=== PATIENT | female | born 1970 | race Caucasian/White ===

== ENCOUNTER 2016-02-22 15:59 | Emergency (ER) ==
[2016-02-22 16:15] VITALS: BP 156/90; TEMP 99.4; BMI 36.8
[2016-02-22] MEDS ORDERED: PHENERGAN 25 MG/ML VIAL IM STA (16:26)
[2016-02-22] MEDS ORDERED: DILAUDID 2 MG/ML SYRINGE IM STA (16:26)
--- NOTE | 2016-02-22 16:29 | ED.PDOC ---
General ED Provider: Dr. JAEMEL LANCE-ER Chief Complaint: Headache Stated Complaint: rudy got a migraine also my throat hurts Time Seen by Physician: 16:15 Mode of Arrival: Walk-In Information Source: Patient Exam Limitations: No limitations Primary Care Provider: SAE GOMEZ Nursing and Triage Documentation Reviewed and Agree: Yes EENT Complaint Exam - Throat Complaint/Exam Onset/Duration: 24hrs Symptoms Are: Still present Timimg: Constant Initial Severity: Mild Current Severity: Mild Aggravating: Reports: Eating Alleviating: Reports: Antipyretics Associated Signs and Symptoms: Reports: Nasal congestion. Denies: Fever, Dysphagia, Drooling, Foreign body sensation, Chills, Cough, Wheezing, Hoarseness , Sinus discomfort, Difficulty breathing, Lethargy, Irritability, Decreased activity, Vomiting, Diarrhea, Decreased hearing, Ear drainage Uvula Midline: Yes Faiza-tonsillar Fluctuence: No Exanthem: Present: Pharynx Stridor Present: No Sinus Tenderness Present: No Tonsillar Hypertrophy Present: Yes Tonsillar Exudate Present: Yes Faiza-tonsillar Swelling Present: No Adenopathy Present: Yes Splenomegaly Present: No Differential Diagnoses: Pharyngitis Review of Systems - Review Of Systems Constitutional: Reports: No symptoms Eyes: Reports: No symptoms Ears, Nose, Mouth, Throat: Reports: Throat pain, Throat swelling Respiratory: Reports: No symptoms Cardiac: Reports: No symptoms GI: Reports: No symptoms : Reports: No symptoms Musculoskeletal: Reports: No symptoms Skin: Reports: No symptoms Neurological: Reports: No symptoms Endocrine: Reports: No symptoms Hematologic/Lymphatic: Reports: No symptoms All Other Systems: Reviewed and Negative Past Medical History - Past Medical History Previously Healthy: No Endocrine: Reports: None Cardiovascular: Reports: Hypertension Respiratory: Reports: None Hematological: Reports: None Gastrointestinal: Reports: None Genitourinary: Reports: None Neuro/Psych: Reports: Anxiety, Depression, PTSD, Other (NOTE MEDICATIONS) Musculoskeletal: Reports: Back Pain Cancer: Reports: None Last Menstrual Period: hysterectomy Other Pertinent Past Medical History: HTN DEPR ANX ARTH BACK CCE HYST - Surgical History General Surgical History: Reports: Hysterectomy, Cholecystectomy, Unknown - Family History Family History: Reports: Unknown - Social History Smoking Status: Current every day smoker, Heavy tobacco smoker Hx Substance Use: No Alcohol Screening: None Lives: With family Physical Exam - Physical Exam Appearance: Well-appearing, No pain distress, Well-nourished Eyes: KOBI, EOMI, Conjunctiva clear ENT: Rhinorrhea, Erythema Neck: Supple Respiratory: Airway patent Cardiovascular: RRR GI/: Soft, Nontender, No masses, Bowel sounds normal, No Organomegaly Musculoskeletal: Normal strength, ROM intact, No edema, No calf tenderness Skin: Warm, Dry, Normal color Neurological: Sensation intact Psychiatric: Affect appropriate Re-Evaluation - Re-Evaluation Time of Re-Evaluation: 16:45 Status: Improved Vital Signs Stable: Yes Pain Level: 0 Appearance: NAD Lungs: Clear Skin: Warm and Dry Neuro: Alert and Oriented X3 CV: RRR Critical Care Note - Critical Care Note Total Time (mins): 0 Course - Course Orders, Labs, Meds: Orders Category Date Time Status STREP SCREEN Stat LAB 02/22/16 16:26 Uncollected Hydromorphone HCl/Pf [Dilaudid 2 mg/ml Syringe] MEDS 02/22/16 16:26 Stat 2 mg IM ONCE STA Promethazine HCl [Phenergan 25 mg/ml Vial] MEDS 02/22/16 16:26 Stat 25 mg IM ONCE STA Medications Generic Name Dose Route Start Last Admin Trade Name Freq PRN Reason Stop Dose Admin Hydromorphone HCl 2 mg 02/22/16 16:26 Dilaudid 2 Mg/Ml Syringe IM 02/22/16 16:27 ONCE STA Promethazine HCl 25 mg 02/22/16 16:26 Phenergan 25 Mg/Ml Vial IM 02/22/16 16:27 ONCE STA Vital Signs: Temp Pulse Resp BP Pulse Ox 02/22/16 15:59 99.4 F 93 H 20 156/90 H 96 Departure - Departure Time of Disposition: 16:29 Disposition: HOME SELF-CARE Discharge Problem: Migraine Qualifiers: Migraine type: unspecified Status migrainosus presence: without status migrainosus Intractability: not intractable Qualifier Code: (G43.909) Migraine, unspecified, not intractable, without status migrainosus Pharyngitis Qualifiers: Pharyngitis/tonsillitis etiology: unspecified etiology Qualifier Code: (J02.9) Acute pharyngitis, unspecified Instructions: Pharyngitis (ED) Condition: Good Pt referred to PMD for follow-up: Yes Additional Instructions: amoxil 500mg tid x 10 days--sips clear liquids--salt water gargles--tylenol for pain Allergies/Adverse Reactions: Allergies ondansetron HCl [From Zofran (as hydrochloride)] Adverse Reaction (Verified 06/04 16:07) Home Medications: Ambulatory Orders Escitalopram Oxalate [Lexapro] 40 mg PO DAILY 10/11/13 Oxycodone-Acetaminophe 7.5-325 [Percocet 7.5-325] 1 tab PO TID PRN 12/31/14 Gabapentin [Neurontin] 600 mg PO BID #30 09/08/15 Haloperidol 5 mg PO TID PRN #21 09/08/15 Alprazolam [Xanax] 1 mg PO TID #90 09/15/15 Benztropine Mesylate 2 mg PO BEDTIME PRN #30 09/15/15 Zolpidem Tartrate [Ambien] 10 mg PO BEDTIME #30 09/15/15 Oxycodone HCl/Acetaminophen [Percocet 7.5-325 Mg Tablet] 1 each PO TID PRN 10/17 Alprazolam [Xanax] 1 mg PO TID #90 12/08/15 Benztropine Mesylate 2 mg PO BEDTIME #30 12/08/15 Escitalopram Oxalate [Lexapro] 20 mg PO BEDTIME #30 12/08/15 Gabapentin [Neurontin] 600 mg PO BID #120 12/08/15 Haloperidol 5 mg PO TID 12/08/15 Zolpidem Tartrate [Ambien] 10 mg PO BEDTIME #30 12/08/15 Topiramate [Topamax] 25 mg PO BEDTIME 02/22/16 Disposition Discussed With: Patient
== END 2016-02-22 16:55 | disposition home or self-care (01) ==
LOC: ED 15:59
DX: G43.909 Migraine, unspecified, not intractable, without status migrainosus (principal); J02.9 Acute pharyngitis, unspecified; I10 Essential (primary) hypertension; F17.210 Nicotine dependence, cigarettes, uncomplicated; Z79.899 Other long term (current) drug therapy
CPT/HCPCS: 87651; 87880; 96372; 99283

== ENCOUNTER 2016-09-09 09:55 | Emergency (ER) ==
[2016-09-09 10:10] VITALS: BP 137/94; TEMP 99.1; BMI 36.7
--- NOTE | 2016-09-09 10:13 | ED.PDOC ---
General ED Provider: Dr. SULEMAN NOVAK JR Chief Complaint: Urinary Problem Stated Complaint: urinary having trouble for one week and abdominal for one week [End]worse today 99.1 118 18 94 137/94 9/10 took half percocet, trouble with urination one week abdominal pain for one month[ inability to urinate for one week voiding small amounts[ End ] Time Seen by Physician: 10:12 Mode of Arrival: Wheelchair Information Source: Patient Exam Limitations: No limitations Primary Care Provider: SAE GOMEZ Nursing and Triage Documentation Reviewed and Agree: No Review of Systems - Review Of Systems Constitutional: Reports: Malaise Eyes: Reports: Drainage Ears, Nose, Mouth, Throat: Reports: No symptoms Respiratory: Reports: No symptoms Cardiac: Reports: No symptoms GI: Reports: Abdomen distended, Abdominal pain, Nausea : Reports: Burning, Dysuria, Frequency, Urgency Musculoskeletal: Reports: No symptoms Skin: Reports: No symptoms Neurological: Reports: Anxiety Endocrine: Reports: No symptoms Hematologic/Lymphatic: Reports: No symptoms All Other Systems: Other Past Medical History - Past Medical History Previously Healthy: No Endocrine: Reports: None Cardiovascular: Reports: Hypertension Respiratory: Reports: COPD Hematological: Reports: None Gastrointestinal: Reports: None Genitourinary: Reports: None Neuro/Psych: Reports: Migraine, Anxiety, Depression, Schizophrenia, PTSD, Other (NOTE MEDICATIONS) Musculoskeletal: Reports: Arthritis, Back Pain Cancer: Reports: None Last Menstrual Period: na - Surgical History General Surgical History: Reports: Hysterectomy (PARTIAL HYSTERECTOMY), Cholecystectomy - Family History Family History: Reports: Unknown - Social History Smoking Status: Current every day smoker, Heavy tobacco smoker Hx Substance Use: No Alcohol Screening: None - Immunizations Tetanus Shot up to Date: No Physical Exam - Physical Exam Appearance: Ill-appearing, Obese Ill-appearing: Moderate Pain Distress: Moderate Eyes: KBOI (tearful), EOMI, Conjunctiva clear Neck: Supple Respiratory: Airway patent GI/: Soft, No masses, Tender, Bowel sounds hypoactive Musculoskeletal: Normal strength, ROM intact, No edema, No calf tenderness Skin: Warm, Dry, Normal color Neurological: Sensation intact, Motor intact, Reflexes intact, Cranial nerves intact, Alert, Oriented Psychiatric: Affect appropriate, Anxious Critical Care Note - Critical Care Note Total Time (mins): 0 Course - Course Hematology/Chemistry: 09/09/16 10:15 09/09/16 10:15 Orders, Labs, Meds: Lab Review 09/09/16 10:15 WBC 9.54 RBC 4.43 Hgb 12.9 Hct 38.6 MCV 87.1 MCH 29.1 MCHC 33.4 RDW Coeff of Marquez 13.7 Plt Count 273 Immature Gran % (Auto) 0.3 Neut % (Auto) 53.5 Lymph % (Auto) 37.2 [place] % (Auto) 5.7 Eos % (Auto) 2.7 Baso % (Auto) 0.6 Immature Gran # (Auto) 0.0 Neut # 5.1 Lymph # 3.6 H [place] # 0.5 Eos # 0.3 Baso # 0.1 Sodium 139 Potassium 4.2 Chloride 105 Carbon Dioxide 22 Anion Gap 16.2 BUN 8 Creatinine 0.79 Estimated GFR (MDRD) 78.00 BUN/Creatinine Ratio 10.12 Glucose 114 H Calcium 9.8 Total Bilirubin 0.19 AST 18 ALT 33 Alkaline Phosphatase 99 H Total Protein 7.7 Albumin 3.8 Globulin 3.9 Albumin/Globulin Ratio 0.97 Amylase 23 L Lipase 8 Procalcitonin 0.81 Urine Color Yellow Urine Clarity Clear Urine pH 7.5 Ur Specific [place] 1.010 Urine Protein Negative Urine Glucose (UA) Negative Urine Ketones Negative Urine Blood Negative Urine Nitrite Negative Urine Bilirubin Negative Urine Urobilinogen 0.2 Ur Leukocyte Esterase 1+ Urine Microscopic WBC 2-5 Ur Squamous Epith Cells 10-20 Urine Bacteria 3+ Orders Category Date Time Status Bladder Scan [ED BLADDER SCAN] .ONCE EMERGENCY 09/09/16 12:03 Active ED IV/MEDIPORT/POWERPORT .ONCE EMERGENCY 09/09/16 10:21 Active ED IV/MEDIPORT/POWERPORT .ONCE EMERGENCY 09/09/16 10:22 Inactive Greer [ED CATHETER INSERTION AND CARE] .ONCE EMERGENCY 09/09/16 11:39 Active AMYLASE Stat LAB 09/09/16 10:15 Completed CBC W/ AUTO DIFF Stat LAB 09/09/16 10:15 Completed COMPREHENSIVE METABOLIC PANEL Stat LAB 09/09/16 10:15 Completed LIPASE Stat LAB 09/09/16 10:15 Completed PROCALCITONIN Stat LAB 09/09/16 10:15 Completed URINALYSIS C & S IF INDICATED Stat LAB 09/09/16 10:15 Completed URINE CULTURE Routine LAB 09/09/16 10:15 Received 0.9 % Sodium Chloride [Saline Flush] MEDS 09/09/16 10:21 Active 1 syr IVF PRN PRN 0.9 % Sodium Chloride [Saline Flush] MEDS 09/09/16 10:22 Active 1 syr IVF PRN PRN Hydromorphone HCl [Dilaudid 1 mg/ml Syringe] MEDS 09/09/16 11:09 Discontinued 1 mg IVP ONCE STA Ketorolac Tromethamine [Toradol] MEDS 09/09/16 10:22 Discontinued 30 mg IVP ONCE STA Lidocaine HCl [Uro-Jet] MEDS 09/09/16 11:39 Discontinued 10 ml MUCOUSMEMB ONCE STA Phenazopyridine HCl [Pyridium] MEDS 09/09/16 10:22 Discontinued 200 mg PO ONCE STA Promethazine HCl [Phenergan 25 mg/ml Vial] MEDS 09/09/16 10:31 Discontinued 25 mg .ROUTE .STK-MED ONE Promethazine HCl [Phenergan 25 mg/ml Vial] 25 mg MEDS 09/09/16 10:22 Discontinued 0.9 % Sodium Chloride [Sodium Chloride] 50 ml IV ONCE Sodium Chloride 0.9% [Sodium Chloride] 1,000 ml MEDS 09/09/16 10:[address] ABDOMEN/PELVIS WO CONTRAST Stat RADS 09/09/16 10:21 Completed Medications Generic Name Dose Route Start Last Admin Trade Name Elsa PRN Reason Stop Dose Admin Sodium Chloride 1 syr 09/09/16 10:21 Saline Flush IVF PRN PRN To flush IV Sodium Chloride 1 syr 09/09/16 10:22 Saline Flush IVF PRN PRN To flush IV Discontinued Medications Generic Name Dose Route Start Last Admin Trade Name Fremeri PRN Reason Stop Dose Admin Hydromorphone HCl 1 mg 09/09/16 11:09 09/09/16 11:21 Dilaudid 1 Mg/Ml Syringe IVP 09/09/16 11:10 1 mg ONCE STA Administration Promethazine HCl 25 mg/ Sodium 51 mls @ 75 mls/hr 09/09/16 10:22 09/09/16 10: 42 Chloride IV 09/09/16 11:02 75 mls/hr ONCE STA Administration Sodium Chloride 1,000 mls @ 1,000 mls/hr 09/09/16 10:22 09/09/16 10:43 Sodium Chloride IV 09/09/16 11:21 1,000 mls/hr BOLUS STA Administration Ketorolac Tromethamine 30 mg 09/09/16 10:22 09/09/16 10:43 Toradol IVP 09/09/16 10:23 30 mg ONCE STA Administration Lidocaine HCl 10 ml 09/09/16 11:39 Uro-Jet MUCOUSMEMB 09/09/16 11:40 ONCE STA Phenazopyridine HCl 200 mg 09/09/16 10:22 09/09/16 10:43 Pyridium PO 09/09/16 10:23 200 mg ONCE STA Administration Vital Signs: Temp Pulse Resp BP Pulse Ox 09/09/16 09:56 99.1 F 118 H 18 137/94 H 94 L Departure - Departure Time of Disposition: 11:41 Disposition: HOME SELF-CARE Discharge Problem: Urinary symptoms, Urinary retention with incomplete bladder emptying Constipation Qualifiers: Constipation type: slow transit constipation Qualifier Code: (K59.01) Slow transit constipation Instructions: Acute Urinary Retention in Women (ED), High Fiber Diet (ED), Constipation (ED) Condition: Good Pt referred to PMD for follow-up: Yes Additional Instructions: follow up with PMD in morning Greer catheter to be removed tomorrow recommend Urology referral antibiotic Bactrim twice a day until gone Phenergan for nausea Miralax one scoop in juice daily for three days then once a day as needed for inadequate bowel movement (may use 1/2 scoop twice a day in juice if easier to take) Prescriptions: Sulfamethoxazole/Trimethoprim [Bactrim Ds 800/160 mg] 1 tab PO Q12HR #14 tablet Phenazopyridine HCl [Pyridium] 200 mg PO TID PRN #10 tablet PRN Reason: PAIN Polyethylene Glycol 3350 [Miralax] 17 gm PO DAILY PRN #510 powder PRN Reason: Constipation Promethazine HCl [Phenergan Tab] 25 mg PO QID PRN #12 tablet PRN Reason: Nausea / Vomiting Allergies/Adverse Reactions: Allergies ondansetron HCl [From Zofran (as hydrochloride)] Adverse Reaction (Verified 10:05) Home Medications: Ambulatory Orders Escitalopram Oxalate [Lexapro] 40 mg PO DAILY 10/11/13 Oxycodone-Acetaminophe 7.5-325 [Percocet 7.5-325] 1 tab PO TID PRN 12/31/14 Oxycodone HCl/Acetaminophen [Percocet 7.5-325 Mg Tablet] 1 each PO TID PRN 10/17 Topiramate [Topamax] 25 mg PO BEDTIME 02/22/16 Phenazopyridine HCl [Pyridium] 200 mg PO TID PRN #10 tablet 09/09/16 Polyethylene Glycol 3350 [Miralax] 17 gm PO DAILY PRN #510 powder 09/09/16 Promethazine HCl [Phenergan Tab] 25 mg PO QID PRN #12 tablet 09/09/16 Sulfamethoxazole/Trimethoprim [Bactrim Ds 800/160 mg] 1 tab PO Q12HR #14 tablet 09/09/16
[2016-09-09] MEDS ORDERED: TORADOL IVP STA (10:22)
[2016-09-09] MEDS ORDERED: PYRIDIUM PO STA (10:22)
[2016-09-09] MEDS ORDERED: SODIUM CHLORIDE 1,000 ML IV STA (10:22)
[2016-09-09] MEDS ORDERED: PHENERGAN 25 MG/ML VIAL 25 MG in SODIUM CHLORIDE 50 ML IV STA (10:22)
[2016-09-09 10:29] LABS: BASOPHILS # (AUTO) 0.1 K/uL (0-0.2); BASOPHILS % (AUTO) 0.6 % (0.0-3.0); EOSINOPHILS # (AUTO) 0.3 K/ul (0.0-0.7); EOSINOPHILS % (AUTO) 2.7 % (0.0-7.0); HEMATOCRIT 38.6 % (37.0-47.0); HEMOGLOBIN 12.9 g/dl (12.0-16.0); IMMATURE GRANULOCYTE % (AUTO) 0.3 % (0.0-5.0); LYMPHOCYTES # (AUTO) 3.6 K/uL (0.60-3.4); LYMPHOCYTES % (AUTO) 37.2 (10.0-50.0); MEAN CORPUSCULAR HEMOGLOBIN 29.1 pg (27.0-31.0); MEAN CORPUSCULAR HGB CONC 33.4 (31.8-35.4); MEAN CORPUSCULAR VOLUME 87.1 fl (81.0-99.0); MONOCYTES # (AUTO) 0.5 K/uL (0.4-2.0); MONOCYTES % (AUTO) 5.7 (0-10); NEUTROPHILS # (AUTO) 5.1 K/ul (2.0-6.9); NEUTROPHILS % (AUTO) 53.5; PLATELET COUNT 273 10^3/uL (140-440); RED BLOOD COUNT 4.43 10^6/ul (4.20-5.40); WHITE BLOOD COUNT 9.54 K/ul (4.6-10.2)
[2016-09-09] MEDS ORDERED: PHENERGAN 25 MG/ML VIAL ONE (10:31)
[2016-09-09 10:34] LABS: BILIRUBIN,URINE Negative (NEGATIVE); KETONES,URINE Negative (NEGATIVE); LEUKOCYTE ESTERASE ,URINE 1+ (NEGATIVE); NITRITE,URINE Negative (NEGATIVE); PH,URINE 7.5 (5-9); PROTEIN,URINE Negative (NEGATIVE); URINE, BLOOD Negative (NEGATIVE)
[2016-09-09 10:37] LABS: ADD URINE MICROSCOPIC YES; BACTERIA,URINE 3+ (NOT PRESENT)
[2016-09-09 10:47] LABS: ALBUMIN 3.8 g/dL (3.4-5.0); ALBUMIN/GLOBULIN RATIO 0.97; ANION GAP 16.2; BILIRUBIN,TOTAL 0.19 mg/dL (0.00-1.20); BUN/CREATININE RATIO 10.12; CALCIUM 9.8 mg/dL (8.2-10.2); CREATININE 0.79 mg/dL (0.60-1.30); POTASSIUM 4.2 mmol/L (3.5-5.10); TOTAL PROTEIN 7.7 g/dL (6.4-8.2)
[2016-09-09] MEDS ORDERED: MORPHINE 4 MG/ML SYRINGE IVP STA (11:08)
[2016-09-09] MEDS ORDERED: DILAUDID 1 MG/ML SYRINGE IVP STA (11:09)
--- NOTE | 2016-09-09 11:12 | CT ---
EXAM: CT of the abdomen pelvis without contrast History: Abdominal pain and difficulty with urination. Comparison: CT abdomen pelvis 05/10/2013 Technique: Multiplanar CT images through the abdomen pelvis were obtained without the administratio n of IV contrast Findings: Lung bases are clear. No acute osseous abnormalities. Status post cholecystectomy. Fatty infiltration of the liver. No focal liver or splenic lesions. No peripancreatic inflammation. Adrenal glands are unremarkable. No renal stones and no hydronephr osis. The appendix is not dilated or inflamed. Moderate to large amount of colonic stool. Moderat e to severe bladder distension. No bladder wall thickening. The uterus is not seen. No bowel obst ruction. No perirectal inflammation. No free air and no ascites. Impression: 1. Moderate to severe bladder distension. No bladder wall thickening. 2. [id number]-[id number] amount of colonic stool. No evidence for bowel obstruction. 3. Hepatic steatosis.
[2016-09-09] MEDS ORDERED: URO-JET MUCOUSMEMB STA (11:39)
== END 2016-09-09 13:00 | disposition home or self-care (01) ==
LOC: ED 09:55
DX: R33.9 Retention of urine, unspecified (principal); K59.01 Slow transit constipation; R30.0 Dysuria; R35.0 Frequency of micturition; F17.210 Nicotine dependence, cigarettes, uncomplicated; Z79.899 Other long term (current) drug therapy
CPT/HCPCS: 36415; 51798; 80053; 81001; 82150; 83690; 84145; 85025; 87086; 96361; 96366; 96374; 96375; 99283

== ENCOUNTER 2016-11-06 18:55 | Emergency (ER) ==
[2016-11-06 19:04] VITALS: BP 113/77; TEMP 98.7; BMI 34.3
[2016-11-06] MEDS ORDERED: DILAUDID 1 MG/ML SYRINGE IM STA (19:16)
[2016-11-06] MEDS ORDERED: TORADOL IM STA (19:16)
--- NOTE | 2016-11-06 19:23 | ED.PDOC ---
General ED Provider: Dr. MARIAM CRUZ Chief Complaint: Knee Pain/Injury Stated Complaint: Patient states that she has a history of knee injury for which she wares a brace. She is supposed to go see ortho. Three days ago she twisted the same knee now has severe pain with any kind of movement. Time Seen by Physician: 19:18 Mode of Arrival: Wheelchair Information Source: Patient Exam Limitations: No limitations [facility] and Triage Documentation Reviewed and Agree: Yes Musculoskeletal Complaint Exam - Knee Pain Complaint/Exam Mechanism of Injury: Reports: Trauma (Twisting injury ) Onset/Duration: 3 days ago Symptoms Are: Still present Onset of Pain: Reports: Immediate Initial Severity: Moderate Current Severity: Severe Location: Reports: Diffuse Character: Reports: Aching, Throbbing Alleviating: Reports: None Aggravating: Reports: Movement, Weight bearing, Prolonged standing, Stairs Associated Signs and Symptoms: Reports: Swelling. Denies: Redness, Bruising, Fever, Weakness, Numbness, Tingling Able to Bear Weight: Yes (but with difficulty ) Related History: Reports: Similar episode Septic Arthritis Risk Factors: Reports: None Gout Risk Factors: Reports: >40 years old, Obesity. Denies: Male Related Surgical History: Reports: Right Knee Knee Findings: Present: Swelling, Tenderness Tenderness: Present: Joint Ruma Test Positive: No Ellie Test Positive: No Limited Range of Motion: Present: Passive Differential Diagnoses: Closed Fracture, Sprain, Strain Review of Systems - Review Of Systems Constitutional: Reports: No symptoms Eyes: Reports: No symptoms Ears, Nose, Mouth, Throat: Reports: No symptoms Respiratory: Reports: No symptoms Cardiac: Reports: No symptoms GI: Reports: No symptoms : Reports: No symptoms Musculoskeletal: Reports: Joint pain, Joint swelling Skin: Reports: No symptoms Neurological: Reports: No symptoms Endocrine: Reports: No symptoms Hematologic/Lymphatic: Reports: No symptoms All Other Systems: Reviewed and Negative Past Medical History - Past Medical History Previously Healthy: No Endocrine: Reports: None Cardiovascular: Reports: Hypertension Respiratory: Reports: COPD Hematological: Reports: None Gastrointestinal: Reports: None Genitourinary: Reports: None Neuro/Psych: Reports: Migraine, Anxiety, Depression, Schizophrenia, PTSD, Other (NOTE MEDICATIONS) Musculoskeletal: Reports: Arthritis, Back Pain Cancer: Reports: None Last Menstrual Period: NA - Surgical History General Surgical History: Reports: Hysterectomy (PARTIAL HYSTERECTOMY), Cholecystectomy - Family History Family History: Reports: Unknown - Social History Smoking Status: Current every day smoker, Heavy tobacco smoker Hx Substance Use: No Alcohol Screening: None - Immunizations Tetanus Shot up to Date: No Physical Exam - Physical Exam Appearance: Ill-appearing, Obese Pain Distress: Severe Respiratory: Airway patent, Breath sounds clear, Breath sounds equal, Respirations nonlabored Cardiovascular: RRR Musculoskeletal: Limited ROM (right knee ) Skin: Warm, Dry, Normal color Neurological: Sensation intact, Motor intact, Alert, Oriented Psychiatric: Anxious Interpretation - Radiology Interpretation Radiology Interpretation By: ED Physician Radiology Results: Negative Exam Interpreted: Other (Knee x ray ) Critical Care Note - Critical Care Note Total Time (mins): 0 Course - Course Orders, Labs, Meds: Orders Category Date Time Status Hydromorphone HCl [Dilaudid 1 mg/ml Syringe] MEDS 11/06/16 19:16 Discontinued 1 mg IM ONCE STA Ketorolac Tromethamine [Toradol] MEDS 11/06/16 19:16 Discontinued 60 mg IM ONCE STA KNEE, RIGHT 4 VIEWS Stat RADS 11/06/16 19:23 Completed Medications Discontinued Medications Generic Name Dose Route Start Last Admin Trade Name Freq PRN Reason Stop Dose Admin Hydromorphone HCl 1 mg 11/06/16 19:16 11/06/16 19:25 Dilaudid 1 Mg/Ml Syringe IM 11/06/16 19:17 1 mg ONCE STA Administration Ketorolac Tromethamine 60 mg 11/06/16 19:16 11/06/16 19:28 Toradol IM 11/06/16 19:17 60 mg ONCE STA Administration Vital Signs: Temp Pulse Resp BP Pulse Ox 11/06/16 18:57 98.7 F 95 H 20 113/77 94 L Departure - Departure Time of Disposition: 20:10 Disposition: HOME SELF-CARE Discharge Problem: Injury of knee Instructions: Knee Sprain (ED) Condition: Fair Pt referred to PMD for follow-up: Yes Additional Instructions: Follow up with PCP in 3 days Continue home medication. Allergies/Adverse Reactions: Allergies ondansetron HCl [From Zofran (as hydrochloride)] Adverse Reaction (Verified 10:05) Home Medications: Ambulatory Orders Escitalopram Oxalate [Lexapro] 40 mg PO DAILY 10/11/13 Oxycodone-Acetaminophe 7.5-325 [Percocet 7.5-325] 1 tab PO TID PRN 12/31/14 Oxycodone HCl/Acetaminophen [Percocet 7.5-325 Mg Tablet] 1 each PO TID PRN 10/17 Topiramate [Topamax] 25 mg PO BEDTIME 02/22/16 Polyethylene Glycol 3350 [Miralax] 17 gm PO DAILY PRN #510 powder 09/09/16 Promethazine HCl [Phenergan Tab] 25 mg PO QID PRN #12 tablet 09/09/16 Disposition Discussed With: Patient
--- NOTE | 2016-11-07 07:31 | DI ---
EXAM: Four views of the right knee HISTORY: Right knee pain. COMPARISON: Left knee x-ray 08/07/2015 and right knee x-rays 08/08/2010 FINDINGS: Medial and lateral compartments of the right knee are unremarkable. There is no lytic or b lastic lesion. No displaced fracture or dislocation of the right knee is identified. The patella de monstrates superior osteophyte. Soft tissues are unremarkable. IMPRESSION: 1. No acute abnormality or displaced fracture. 2. Small superior patellar osteophyte.
== END 2016-11-06 20:10 | disposition home or self-care (01) ==
LOC: ED 18:55
DX: M25.561 Pain in right knee (principal); X50.1XXA Overexertion from prolonged static or awkward postures, initial encounter; F17.210 Nicotine dependence, cigarettes, uncomplicated
CPT/HCPCS: 96372; 99282

== ENCOUNTER 2018-01-05 11:37 | Emergency (ER) | payer OTHER ==
[2018-01-05 11:42] VITALS: BP 134/90; TEMP 96.9; BMI 25.1
[2018-01-05] MEDS ORDERED: ATIVAN PO STA ×2 (14:14→18:22)
--- NOTE | 2018-01-05 14:23 | ED.PDOC ---
General Stated Complaint: im depressed and im also hearing voices Time Seen by Physician: 11:45 Mode of Arrival: Walk-In Information Source: Patient Exam Limitations: No limitations Nursing and Triage Documentation Reviewed and Agree: Yes Does patient meet sepsis criteria?: No System Inflammatory Response Syndrome: Not Applicable <NEILJAMEEL - Last Filed: 01/05/18 18:33> <MARIAM CRUZ - Last Filed: 01/06/18 06:13> <PEARL JIMÉNEZ - Last Filed: 01/06/18 16:02> ED Provider: Dr. PEARL JIMÉNEZ Chief Complaint: Psychiatric Complaint Sepsis Protocol: For patient's 13 years and over: Temp is 96.8 and below OR 101 and greater Pulse >90 BPM Resp >20/minute Acutely Altered Mental Status Are patient's symptoms suggestive of a new infection, such as: -Pneumonia -Skin, Soft Tissue -Endocarditis -UTI -Bone, Joint Infection -Implantable Device -Acute Abdominal Infection -Wound Infection -Meningitis -Blood Stream Catheter Infection -Unknown Psychological Complaint Exam - Psychiatric Complaint/Exam Patient Complains Of: Present: Depression, Suicidal thoughts Onset/Duration: 2 weeks Symptoms Are: Still present Timing: Constant Initial Severity: Mild Current Severity: Mild Character: Present: Depressed Aggravating: Reports: Medication noncompliance Associated Signs And Symptoms: Reports: Sleep disturbance Related History: Reports: Suicidal thoughts Patient Accompanied By: Family Patient In Custody Of Police: No Related Surgical History: Reports: None Patient Uncooperative For Exam: No Mood: Present: Depressed, Anxious Appearance: Present: Clean Thought Process: Present: Logical Insight: Present: Good Memory: Intact Judgement: Normal Danger To Others: No Patient Medically Stable For: Psych evaluation, Referral, Transfer Differential Diagnoses: Anxiety, Bipolar Disorder, Depression, Schizophrenia <NEILJAMEEL - Last Filed: 01/05/18 18:33> Review of Systems - Review Of Systems Constitutional: Reports: No symptoms Eyes: Reports: No symptoms Ears, Nose, Mouth, Throat: Reports: No symptoms Respiratory: Reports: No symptoms Cardiac: Reports: No symptoms GI: Reports: No symptoms : Reports: No symptoms Musculoskeletal: Reports: No symptoms Skin: Reports: No symptoms Neurological: Reports: No symptoms Endocrine: Reports: No symptoms Hematologic/Lymphatic: Reports: No symptoms All Other Systems: Reviewed and Negative <NEILJAMEEL - Last Filed: 01/05/18 18:33> Past Medical History - Past Medical History Previously Healthy: No Endocrine: Reports: None Cardiovascular: Reports: Hypertension Respiratory: Reports: COPD Hematological: Reports: None Gastrointestinal: Reports: None Genitourinary: Reports: None Neuro/Psych: Reports: Migraine, Anxiety, Depression, Schizophrenia, PTSD, Other (NOTE MEDICATIONS) Musculoskeletal: Reports: Arthritis, Back Pain Cancer: Reports: None Last Menstrual Period: n/a - Surgical History General Surgical History: Reports: Hysterectomy (PARTIAL HYSTERECTOMY), Cholecystectomy - Family History Family History: Reports: Unknown - Social History Smoking Status: Current every day smoker, Heavy tobacco smoker Hx Substance Use: Yes (meth, marijuana,alcohol) Alcohol Screening: Occasionally <JAMEEL TREJO - Last Filed: 01/05/18 18:33> Physical Exam - Physical Exam Appearance: Well-appearing, No pain distress, Well-nourished Eyes: KOBI ENT: Ears normal Neck: Supple Respiratory: Airway patent, Breath sounds clear, Breath sounds equal, Respirations nonlabored Cardiovascular: RRR, Pulses normal, No rub, No murmur GI/: Soft, Nontender, No masses, Bowel sounds normal, No Organomegaly Musculoskeletal: Normal strength, ROM intact, No edema, No calf tenderness Skin: Warm, Dry, Normal color Neurological: Sensation intact, Motor intact, Reflexes intact, Cranial nerves intact, Alert, Oriented Psychiatric: Affect appropriate <JAMEEL TREJO - Last Filed: 01/05/18 18:33> Interpretation - EKG Interpretation Time of EKG #1: 17:33 Rate: Normal Rhythm: Sinus Ectopy: None [place]: [place] ST Segment: Normal Interpretation: nsr <JAMEEL TREJO - Last Filed: 01/05/18 18:33> Re-Evaluation - Re-Evaluation Time of Re-Evaluation: 06:13 Status: Improved (Less hallucinations after sleeping and getting the Geodon and Ativan.) Vital Signs Stable: Yes <MARIAM CRUZ - Last Filed: 01/06/18 06:13> Physician Notification - Case Discussed Physician Notified: dr cruz Time of Notification: 19:00 <JAMEEL TREJO - Last Filed: 01/05/18 18:33> Critical Care Note <JAMEEL TREJO - Last Filed: 01/05/18 18:33> - Critical Care Note Total Time (mins): 0 <MARIAM CRUZ - Last Filed: 01/06/18 06:13> <PEARL JIMÉNEZ - Last Filed: 01/06/18 16:02> - Critical Care Note Comments: states she stopped taking her psych medications one year ago. Has been self medicating with Alcohol. She states that her voices area make her dysfunctional. She is agree able to getting GEODON shot to help while we continue to find placement at a psychiatric hospital. Mental health worker agreeable. (MARIAM CRUZ) Course - Course Hematology/Chemistry: 01/05/18 11:55 01/05/18 11:55 <JAMEEL TREJO - Last Filed: 01/05/18 18:33> - Course Hematology/Chemistry: 01/05/18 11:55 01/05/18 11:55 <MARIAM CRUZ - Last Filed: 01/06/18 06:13> - Course Hematology/Chemistry: 01/05/18 11:55 01/05/18 11:55 <PEARL JIMÉNEZ - Last Filed: 01/06/18 16:02> - Course Orders, Labs, Meds: Lab Review 01/05/18 01/05/18 01/05/18 11:53 11:53 11:55 WBC 5.55 RBC 4.43 Hgb 13.2 Hct 39.4 MCV 88.9 MCH 29.8 MCHC 33.5 RDW Coeff of Marquez 13.5 Plt Count 318 Immature Gran % (Auto) 0.2 Neut % (Auto) 45.2 Lymph % (Auto) 43.2 [place] % (Auto) 7.2 Eos % (Auto) 3.1 Baso % (Auto) 1.1 Immature Gran # (Auto) 0.0 Neut # (Auto) 2.5 Lymph # (Auto) 2.4 [place] # (Auto) 0.4 Eos # (Auto) 0.2 Baso # (Auto) 0.1 Sodium Potassium Chloride Carbon Dioxide Anion Gap BUN Creatinine Estimated GFR (MDRD) BUN/Creatinine Ratio Glucose Calcium Total Bilirubin AST ALT Alkaline Phosphatase Total Protein Albumin Globulin Albumin/Globulin Ratio TSH Urine Color Yellow Urine Clarity Clear Urine pH 7.0 Ur Specific [place] 1.010 Urine Protein Negative Urine Glucose (UA) Negative Urine Ketones Negative Urine Blood Negative Urine Nitrite Negative Urine Bilirubin Negative Urine Urobilinogen 0.2 Ur Leukocyte Esterase 1+ Urine Microscopic RBC 2-5 Urine Microscopic WBC 5-10 Ur Squamous Epith Cells 5-10 Urine Bacteria 2+ Urine Mucus Trace Salicylate Level mg/dL Urine Opiates Screen Negative Ur Oxycodone Screen Positive Urine Methadone Screen Negative Ur Propoxyphene Screen Negative Acetaminophen Ur Barbiturates Screen Negative U Tricyclic Antidepress Negative Ur Phencyclidine Scrn Negative Ur Amphetamine Screen Negative U Methamphetamines Scrn Negative U Benzodiazepines Scrn Negative Urine Cocaine Screen Negative U Cannabinoids Screen Positive Plasma/Serum Alcohol 01/05/18 11:55 WBC RBC Hgb Hct MCV MCH MCHC RDW Coeff of Marquez Plt Count Immature Gran % (Auto) Neut % (Auto) Lymph % (Auto) [place] % (Auto) Eos % (Auto) Baso % (Auto) Immature Gran # (Auto) Neut # (Auto) Lymph # (Auto) [place] # (Auto) Eos # (Auto) Baso # (Auto) Sodium 136.7 L Potassium 3.75 Chloride 101.7 Carbon Dioxide 31.2 H Anion Gap 7.55 BUN 9.3 Creatinine 0.54 L Estimated GFR (MDRD) 120.00 BUN/Creatinine Ratio 17.22 Glucose 124.7 H Calcium 9.38 Total Bilirubin 0.43 AST 82.4 H ALT 149.5 H Alkaline Phosphatase 122.4 Total Protein 7.64 Albumin 4.21 Globulin 3.43 Albumin/Globulin Ratio 1.22 TSH 0.575 Urine Color Urine Clarity Urine pH Ur Specific [place] Urine Protein Urine Glucose (UA) Urine Ketones Urine Blood Urine Nitrite Urine Bilirubin Urine Urobilinogen Ur Leukocyte Esterase Urine Microscopic RBC Urine Microscopic WBC Ur Squamous Epith Cells Urine Bacteria Urine Mucus Salicylate Level mg/dL < 1.00 Urine Opiates Screen Ur Oxycodone Screen Urine Methadone Screen Ur Propoxyphene Screen Acetaminophen < 10.0 L Ur Barbiturates Screen U Tricyclic Antidepress Ur Phencyclidine Scrn Ur Amphetamine Screen U Methamphetamines Scrn U Benzodiazepines Scrn Urine Cocaine Screen U Cannabinoids Screen Plasma/Serum Alcohol < 10.0 Orders Category Date Time Status EKG-(ED ONLY) Stat CARDIO 01/05/18 17:16 Completed EKG-(ED ONLY) Stat CARDIO 01/06/18 15:36 Completed Mental Health Consult [ED MENTAL HEALTH CONSULT] .ONCE EMERGENCY 01/05/18 11: 50 Active ACETAMINOPHEN Stat LAB 01/05/18 11:55 Completed CBC W/ AUTO DIFF Stat LAB 01/05/18 11:55 Completed COMPREHENSIVE METABOLIC PANEL Stat LAB 01/05/18 11:55 Completed DRUG SCREEN, URINE, RAPID Stat LAB 01/05/18 11:53 Completed ETOH LEVEL [BLOOD ALCOHOL] Stat LAB 01/05/18 11:55 Completed SALICYLATE Stat LAB 01/05/18 11:55 Completed THYROID STIMULATING HORMONE Stat LAB 01/05/18 11:55 Completed URINALYSIS C & S IF INDICATED Stat LAB 01/05/18 11:53 Completed URINE CULTURE Stat LAB 01/05/18 12:12 Results Lorazepam Inj [Ativan] MEDS 01/06/18 09:07 Discontinued 2 mg IM ONCE STA Lorazepam [Ativan] MEDS 01/05/18 14:14 Discontinued 0.5 mg PO ONCE STA Lorazepam [Ativan] MEDS 01/05/18 18:22 Discontinued 0.5 mg PO ONCE STA Lorazepam [Ativan] MEDS 01/06/18 15:58 Discontinued 2 mg PO ONCE STA Nicotine 14 mg [Nicoderm 14 mg] MEDS 01/05/18 18:37 Discontinued 1 patch TD ONCE STA Ziprasidone Mesylate [Geodon] MEDS 01/05/18 20:57 Discontinued 10 mg IM ONCE STA Medications Discontinued Medications Generic Name Dose Route Start Last Admin Trade Name Freq PRN Reason Stop Dose Admin Lorazepam 0.5 mg 01/05/18 14:14 01/05/18 14:22 Ativan PO 01/05/18 14:15 0.5 mg ONCE STA Administration Lorazepam 0.5 mg 01/05/18 18:22 01/05/18 18:36 Ativan PO 01/05/18 18:23 0.5 mg ONCE STA Administration Lorazepam 2 mg 01/06/18 09:07 01/06/18 09:29 Ativan IM 01/06/18 09:08 2 mg ONCE STA Administration Lorazepam 2 mg 01/06/18 15:58 Ativan PO 01/06/18 15:59 ONCE STA Nicotine 1 patch 01/05/18 18:37 01/05/18 18:47 Nicoderm 14 Mg TD 01/05/18 18:38 1 patch ONCE STA Administration Ziprasidone 10 mg 01/05/18 20:57 01/05/18 21:11 Geodon IM 01/05/18 20:58 10 mg ONCE STA Administration Vital Signs: Temp Pulse Resp BP Pulse Ox 01/05/18 11:38 96.9 F L 86 16 134/90 95 Departure <JAMEEL TREJO - Last Filed: 01/05/18 18:33> - Departure Pt referred to PMD for follow-up: Yes IPMP verified?: No <MARIAM CRUZ - Last Filed: 01/06/18 06:13> - Departure Time of Disposition: 16:01 (improved not suicidal nor homocidal ) Pt referred to PMD for follow-up: Yes IPMP verified?: No <PEARL JIMÉNEZ - Last Filed: 01/06/18 16:02> - Departure Disposition: HOME SELF-CARE Discharge Problem: Psychosis Instructions: Anxiety (ED), Anxiolysis in Adults (ED), Generalized Anxiety Disorder (ED) Condition: Good Additional Instructions: Please call your Family Physician as soon as possible to schedule a follow-up appointment. Allergies/Adverse Reactions: Allergies ondansetron HCl [From Zofran (as hydrochloride)] Adverse Reaction (Verified 11:42) Home Medications: Ambulatory Orders Escitalopram Oxalate [Lexapro] 40 mg PO DAILY 10/11/13 Oxycodone-Acetaminophe 7.5-325 [Percocet 7.5-325] 1 tab PO TID PRN 12/31/14 Oxycodone HCl/Acetaminophen [Percocet 7.5-325 Mg Tablet] 1 each PO TID PRN 10/17 Topiramate [Topamax] 25 mg PO BEDTIME 02/22/16 Polyethylene Glycol 3350 [Miralax] 17 gm PO DAILY PRN #510 powder 09/09/16 Promethazine HCl [Phenergan Tab] 25 mg PO QID PRN #12 tablet 09/09/16 Discharge Problem: Psychosis Qualifiers: Psychosis type: schizophrenia Schizophrenia type: unspecified Qualified Code(s) : F20.9 - Schizophrenia, unspecified
[2018-01-05] MEDS ORDERED: NICODERM 14 MG TD STA (18:37)
[2018-01-05] MEDS ORDERED: GEODON IM STA (20:57)
[2018-01-06] MEDS ORDERED: ATIVAN IM STA (09:07)
[2018-01-06] MEDS ORDERED: ATIVAN PO STA (15:58)
== END 2018-01-06 17:18 | disposition home or self-care (01) ==
LOC: ED 11:37
DX: F20.9 Schizophrenia, unspecified (principal); Z91.14 Patient's other noncompliance with medication regimen; F17.210 Nicotine dependence, cigarettes, uncomplicated
CPT/HCPCS: 36415; 80053; 80306; 80307; 81001; 84443; 85025; 87086; 87186; 93005; 93010; 96372; 99284

== ENCOUNTER 2018-04-11 08:10 | Outpatient (CLI) ==
[2018-01-07 19:58] VITALS: BMI 25.2
== END 2018-04-11 08:27 | disposition short-term general hospital (02) ==
LOC: AMBL 08:10
PROVIDERS: ATTEND Internal Medicine
DX: R41.82 Altered mental status, unspecified (principal); R44.1 Visual hallucinations; R44.0 Auditory hallucinations; F15.10 Other stimulant abuse, uncomplicated; F20.0 Paranoid schizophrenia; Z91.14 Patient's other noncompliance with medication regimen

== ENCOUNTER 2018-05-06 15:31 | Outpatient (CLI) ==
[2018-05-06 15:49] VITALS: BMI 26.7
== END 2018-05-06 15:33 | disposition critical access hospital (66) ==
LOC: AMBL 15:31
PROVIDERS: ATTEND Family Medicine
DX: M54.5 Low back pain (principal); W22.8XXA Striking against or struck by other objects, initial encounter; Y04.2XXA Assault by strike against or bumped into by another person, initial encounter

== ENCOUNTER 2018-05-06 15:39 | Emergency (ER) ==
[2018-05-06 15:49] VITALS: BP 143/82; TEMP 98.3; BMI 26.7
[2018-05-06] MEDS ORDERED: TORADOL IM STA (16:00)
--- NOTE | 2018-05-06 16:05 | ED.PDOC ---
General ED Provider: Dr. JAMEEL KNE MD Chief Complaint: Back Pain Stated Complaint: right lower back pain Time Seen by Physician: 15:50 Mode of Arrival: Wheelchair Information Source: Patient Exam Limitations: No limitations Nursing and Triage Documentation Reviewed and Agree: Yes Does patient meet sepsis criteria?: No If yes, has appropriate treatment been initiated?: Yes System Inflammatory Response Syndrome: Not Applicable Sepsis Protocol: For patient's 13 years and over: Temp is 96.8 and below OR 101 and greater Pulse >90 BPM Resp >20/minute Acutely Altered Mental Status Are patient's symptoms suggestive of a new infection, such as: -Pneumonia -Skin, Soft Tissue -Endocarditis -UTI -Bone, Joint Infection -Implantable Device -Acute Abdominal Infection -Wound Infection -Meningitis -Blood Stream Catheter Infection -Unknown Review of Systems - Review Of Systems Constitutional: Reports: No symptoms Eyes: Reports: No symptoms Ears, Nose, Mouth, Throat: Reports: No symptoms Respiratory: Reports: No symptoms Cardiac: Reports: No symptoms GI: Reports: No symptoms : Reports: No symptoms Musculoskeletal: Reports: No symptoms Skin: Reports: No symptoms Neurological: Reports: No symptoms Endocrine: Reports: No symptoms Hematologic/Lymphatic: Reports: No symptoms All Other Systems: Reviewed and Negative Past Medical History - Past Medical History Previously Healthy: No Endocrine: Reports: None Cardiovascular: Reports: Hypertension Respiratory: Reports: COPD Hematological: Reports: None Gastrointestinal: Reports: None Genitourinary: Reports: None Neuro/Psych: Reports: Migraine, Anxiety, Depression, Schizophrenia, PTSD, Other (NOTE MEDICATIONS) Musculoskeletal: Reports: Arthritis, Back Pain Cancer: Reports: None Last Menstrual Period: unknown - Surgical History General Surgical History: Reports: Hysterectomy (PARTIAL HYSTERECTOMY), Cholecystectomy - Family History Family History: Reports: Unknown - Social History Smoking Status: Current every day smoker, Heavy tobacco smoker Hx Substance Use: Yes (meth, marijuana,alcohol) Alcohol Screening: Heavy Physical Exam - Physical Exam Appearance: Thin Ill-appearing: None Pain Distress: Moderate Eyes: KOBI, EOMI, Conjunctiva clear ENT: Ears normal, Nose normal, Oropharynx normal Respiratory: Airway patent, Breath sounds clear, Breath sounds equal, Respirations nonlabored Cardiovascular: RRR, Pulses normal, No rub, No murmur GI/: Soft, Nontender, No masses, Bowel sounds normal, No Organomegaly Musculoskeletal: Normal strength, ROM intact, No edema, No calf tenderness Skin: Warm, Dry, Normal color Neurological: Sensation intact, Motor intact, Reflexes intact, Cranial nerves intact, Alert, Oriented Psychiatric: Affect appropriate, Mood appropriate Critical Care Note - Critical Care Note Total Time (mins): 0 Course - Course Orders, Labs, Meds: Orders Category Date Time Status Ketorolac Tromethamine [Toradol] MEDS 05/06/18 16:00 Discontinued 60 mg IM ONCE STA Medications Discontinued Medications Generic Name Dose Route Start Last Admin Trade Name Elsa PRN Reason Stop Dose Admin Ketorolac Tromethamine 60 mg 05/06/18 16:00 05/06/18 16:08 Toradol IM 05/06/18 16:01 60 mg ONCE STA Administration Vital Signs: Temp Pulse Resp BP Pulse Ox 05/06/18 15:40 98.3 F 106 H 20 143/82 H 95 Departure - Departure Time of Disposition: 16:55 Disposition: HOME SELF-CARE Discharge Problem: Low back pain Qualifiers: Chronicity: acute Back pain laterality: unspecified Instructions: Acute Low Back Pain (ED) Condition: Good Pt referred to PMD for follow-up: Yes IPMP verified?: No Allergies/Adverse Reactions: Allergies ondansetron HCl [From Zofran (as hydrochloride)] Adverse Reaction (Verified 15:48) Home Medications: Ambulatory Orders 1 [No Reported Medications] 01/07/18 Disposition Discussed With: Patient
== END 2018-05-06 17:00 | disposition home or self-care (01) ==
LOC: ED 15:39
DX: M54.5 Low back pain (principal); Z72.0 Tobacco use
CPT/HCPCS: 96372; 99283

== ENCOUNTER 2018-06-24 18:46 | Emergency (ER) ==
[2018-06-24 18:54] VITALS: BMI 26.4
[2018-06-24] MEDS ORDERED: HALDOL IM STA (19:04)
--- NOTE | 2018-06-24 19:04 | ED.PDOC ---
General ED Provider: Dr. JAMEEL KEN MD Chief Complaint: Altered Mental Status Stated Complaint: I wanna go home, smells of alcohol, h/o manic-depressive Time Seen by Physician: 19:08 Mode of Arrival: Walk-In Information Source: Family, Police Exam Limitations: No limitations Nursing and Triage Documentation Reviewed and Agree: Yes Does patient meet sepsis criteria?: No If yes, has appropriate treatment been initiated?: Yes System Inflammatory Response Syndrome: Not Applicable Sepsis Protocol: For patient's 13 years and over: Temp is 96.8 and below OR 101 and greater Pulse >90 BPM Resp >20/minute Acutely Altered Mental Status Are patient's symptoms suggestive of a new infection, such as: -Pneumonia -Skin, Soft Tissue -Endocarditis -UTI -Bone, Joint Infection -Implantable Device -Acute Abdominal Infection -Wound Infection -Meningitis -Blood Stream Catheter Infection -Unknown Review of Systems - Review Of Systems Constitutional: Reports: No symptoms Eyes: Reports: No symptoms Ears, Nose, Mouth, Throat: Reports: No symptoms Respiratory: Reports: No symptoms Cardiac: Reports: No symptoms GI: Reports: No symptoms : Reports: No symptoms Musculoskeletal: Reports: No symptoms Skin: Reports: No symptoms Neurological: Reports: No symptoms Endocrine: Reports: No symptoms Hematologic/Lymphatic: Reports: No symptoms All Other Systems: Other (manic depressive) Past Medical History - Past Medical History Previously Healthy: No Endocrine: Reports: None Cardiovascular: Reports: Hypertension Respiratory: Reports: COPD Hematological: Reports: None Gastrointestinal: Reports: None Genitourinary: Reports: None Neuro/Psych: Reports: Migraine, Anxiety, Depression, Schizophrenia, PTSD, Other (NOTE MEDICATIONS) Musculoskeletal: Reports: Arthritis, Back Pain Cancer: Reports: None Last Menstrual Period: hysterectomh - Surgical History General Surgical History: Reports: Hysterectomy (PARTIAL HYSTERECTOMY), Cholecystectomy - Family History Family History: Reports: Unknown - Social History Smoking Status: Current every day smoker, Heavy tobacco smoker Hx Substance Use: Yes (meth, marijuana,alcohol) Alcohol Screening: Heavy Physical Exam - Physical Exam Appearance: Thin Ill-appearing: Mild Pain Distress: None Eyes: KOBI, EOMI, Conjunctiva clear ENT: Ears normal, Nose normal, Oropharynx normal Neck: Supple Respiratory: Airway patent, Breath sounds clear, Breath sounds equal, Respirations nonlabored Cardiovascular: RRR GI/: Soft, Nontender, No masses, Bowel sounds normal, No Organomegaly Musculoskeletal: Normal strength, ROM intact, No edema, No calf tenderness Skin: Warm, Dry, Normal color Neurological: Sensation intact, Motor intact, Reflexes intact, Cranial nerves intact, Alert, Oriented Psychiatric: Anxious Critical Care Note - Critical Care Note Total Time (mins): 0 Course - Course Orders, Labs, Meds: Lab Review 06/24/18 19:15 Plasma/Serum Alcohol 272.7 H Orders Category Date Time Status ETOH LEVEL [BLOOD ALCOHOL] Stat LAB 06/24/18 19:15 Completed URINE DRUG SCREEN (RAPID FOR ED) [DRUG SCREEN, URINE, LAB 06/24/18 19:05 Uncollected RAPID] Stat Haloperidol Lactate [Haldol] MEDS 06/24/18 19:04 Discontinued 10 mg IM ONCE STA Medications Discontinued Medications Generic Name Dose Route Start Last Admin Trade Name Rafatq PRN Reason Stop Dose Admin Haloperidol Lactate 10 mg 06/24/18 19:04 06/24/18 19:15 Haldol IM 06/24/18 19:05 10 mg ONCE STA Administration Vital Signs: Temp Pulse Resp BP Pulse Ox 06/24/18 21:43 97.8 F 85 14 138/78 96 06/24/18 18:46 98 F 104 H 16 126/101 H 95 Departure - Departure Time of Disposition: 00:30 Disposition: DIS[facility] COURT/[facility] E[facility] Discharge Problem: ETOH abuse Instructions: Abuse of Alcohol (ED) Condition: Good Pt referred to PMD for follow-up: Yes IPMP verified?: No Allergies/Adverse Reactions: Allergies ondansetron HCl [From Zofran (as hydrochloride)] Adverse Reaction (Verified 09/05 18:55) Home Medications: Ambulatory Orders Benztropine Mesylate [Cogentin] 1 mg PO BID 06/24/18 Haloperidol [Haldol] 0.5 mg PO TID 06/24/18 Olanzapine [Zyprexa] 5 mg PO DAILY 06/24/18
[2018-06-25 01:40] VITALS: BP 129/88; TEMP 97.9
== END 2018-06-25 01:50 ==
LOC: ED 18:46
DX: F10.10 Alcohol abuse, uncomplicated (principal); R41.82 Altered mental status, unspecified; F17.210 Nicotine dependence, cigarettes, uncomplicated; I10 Essential (primary) hypertension
CPT/HCPCS: 36415; 80307; 96372; 99282

== ENCOUNTER 2018-07-17 13:32 | Emergency (ER) ==
[2018-07-17 13:47] VITALS: BMI 25.7
[2018-07-17] MEDS ORDERED: ATIVAN 1 ML ONE (15:06)
[2018-07-17] MEDS ORDERED: ATIVAN IM STA ×2 (15:06→17:58)
--- NOTE | 2018-07-17 16:06 | DI ---
EXAM: LEFT HAND THREE VIEWS HISTORY: Injury, pain FINDINGS: Bone and joint structures appear normal. There is no fracture, joint dislocation, bone density abnormality or soft tissue finding. IMPRESSION: No fracture or dislocation identified.
[2018-07-17 16:07] LABS: URINE PREGNANCY TEST NEGATIVE (NEGATIVE)
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
[2018-07-18] MEDS: NICODERM 14 MG TD SCH ×2 (05:54→09:49)
[2018-07-18] MEDS ORDERED: ATIVAN PO STA (09:39)
[2018-07-18 13:28] VITALS: BP 113/78; TEMP 97
== END 2018-07-18 15:20 ==
LOC: ED 13:32
DX: F23 Brief psychotic disorder (principal); R44.0 Auditory hallucinations; F17.210 Nicotine dependence, cigarettes, uncomplicated
CPT/HCPCS: 36415; 80053; 80156; 80164; 80178; 80306; 80307; 81001; 81025; 84439; 84443; 85025; 87086; 87186; 93005; 93010; 96372; 99285

== ENCOUNTER 2018-09-13 15:25 | Emergency (ER) ==
[2018-09-13 15:30] VITALS: TEMP 97.9; BMI 28.6
[2018-09-13 17:18] VITALS: BP 152/84
[2018-09-13] MEDS ORDERED: TORADOL IM STA (17:29)
--- NOTE | 2018-09-13 17:34 | ED.PDOC ---
General ED Provider: Dr. PEARL JIMÉNEZ Chief Complaint: Psychiatric Complaint Stated Complaint: DEPRESSED HAD BEEN HOMELESS C/O A HEADACHE BEEN OFF HER MEDS STATED SHE HEAR'S VOICES Time Seen by Physician: 15:30 Mode of Arrival: Walk-In Information Source: Patient Exam Limitations: No limitations Nursing and Triage Documentation Reviewed and Agree: Yes Does patient meet sepsis criteria?: No System Inflammatory Response Syndrome: Not Applicable Sepsis Protocol: For patient's 13 years and over: Temp is 96.8 and below OR 101 and greater Pulse >90 BPM Resp >20/minute Acutely Altered Mental Status Are patient's symptoms suggestive of a new infection, such as: -Pneumonia -Skin, Soft Tissue -Endocarditis -UTI -Bone, Joint Infection -Implantable Device -Acute Abdominal Infection -Wound Infection -Meningitis -Blood Stream Catheter Infection -Unknown Psychological Complaint Exam - Psychiatric Complaint/Exam Patient Complains Of: Present: Depression, Other (HOMELESS ). Absent: Suicidal thoughts, Suicidal gestures Onset/Duration: A CHRONIC ISSUE Symptoms Are: Still present Timing: Intermittent Episodes Lasting: Weeks Initial Severity: Moderate Current Severity: Mild Character: Present: Depressed, Anxious, Frustrated Aggravating: Reports: Recent stress (HOMELESS ), Drug use, Medication noncompliance (STATED HAS BEEN OFF THEM ) Associated Signs And Symptoms: Reports: Sleep disturbance, Appetite change. Denies: Hostile, Confused, Hallucinating, Paranoid behavior Related History: Reports: Recent stressors. Denies: Suicidal thoughts, Suicidal plan, Suicidal gestures, Homicidal thoughts, Homicidal plan, Homicidal gestures Completed Suicide Risk Factors: , Unemployed Patient Accompanied By: Family Patient In Custody Of Police: No Social Withdrawal Present: Yes Social Isolation Present: Yes Prior Suicide Attempt: No (BUT HAD IDEATION) Related Surgical History: Reports: None Patient Uncooperative For Exam: No Mood: Present: Depressed, Agitated, Anxious Appearance: Present: Unkempt Thought Process: Present: Illogical Insight: Present: Poor Memory: Intact Judgement: Impaired Danger To Others: No Patient Medically Stable For: Psych evaluation Differential Diagnoses: Anxiety, Depression Review of Systems - Review Of Systems Constitutional: Reports: No symptoms Eyes: Reports: No symptoms Ears, Nose, Mouth, Throat: Reports: No symptoms Respiratory: Reports: No symptoms Cardiac: Reports: No symptoms GI: Reports: No symptoms : Reports: No symptoms Musculoskeletal: Reports: No symptoms Skin: Reports: Other (INSECT BITES ) Neurological: Reports: Anxiety, Depressed, Headache Endocrine: Reports: No symptoms Hematologic/Lymphatic: Reports: No symptoms All Other Systems: Reviewed and Negative Past Medical History - Past Medical History Previously Healthy: No Endocrine: Reports: None Cardiovascular: Reports: Hypertension Respiratory: Reports: COPD Hematological: Reports: None Gastrointestinal: Reports: None Genitourinary: Reports: None Neuro/Psych: Reports: Migraine, Anxiety, Depression, Schizophrenia, PTSD, Other (NOTE MEDICATIONS) Musculoskeletal: Reports: Arthritis, Back Pain Cancer: Reports: None Last Menstrual Period: N/A - Surgical History General Surgical History: Reports: Hysterectomy (PARTIAL HYSTERECTOMY), Cholecystectomy - Family History Family History: Reports: Unknown - Social History Smoking Status: Current every day smoker, Heavy tobacco smoker Hx Substance Use: Yes (meth, marijuana,alcohol) Alcohol Screening: Heavy Physical Exam - Physical Exam Appearance: Well-appearing, No pain distress, Well-nourished Eyes: KOBI, EOMI, Conjunctiva clear ENT: Ears normal, Nose normal, Oropharynx normal Respiratory: Airway patent, Breath sounds clear, Breath sounds equal, Respirations nonlabored Cardiovascular: RRR, Pulses normal, No rub, No murmur GI/: Soft, Nontender, No masses, Bowel sounds normal, No Organomegaly Musculoskeletal: Normal strength, ROM intact, No edema, No calf tenderness Skin: Warm, Dry, Normal color Neurological: Sensation intact, Motor intact, Reflexes intact, Cranial nerves intact, Alert, Oriented Psychiatric: Mood appropriate Critical Care Note - Critical Care Note Total Time (mins): 0 Course - Course Hematology/Chemistry: 09/13/18 15:52 09/13/18 15:52 Orders, Labs, Meds: Lab Review 09/13/18 09/13/18 09/13/18 15:42 15:42 15:52 WBC 5.80 RBC 3.91 L Hgb 12.1 Hct 35.9 L MCV 91.8 MCH 30.9 MCHC 33.7 RDW Coeff of Marquez 13.2 Plt Count 239 Immature Gran % (Auto) 0.2 Neut % (Auto) 45.4 Lymph % (Auto) 45.3 [place] % (Auto) 6.0 Eos % (Auto) 2.1 Baso % (Auto) 1.0 Immature Gran # (Auto) 0.0 Neut # (Auto) 2.6 Lymph # (Auto) 2.6 [place] # (Auto) 0.4 Eos # (Auto) 0.1 Baso # (Auto) 0.1 Sodium Potassium Chloride Carbon Dioxide Anion Gap BUN Creatinine Estimated GFR (MDRD) BUN/Creatinine Ratio Glucose Calcium Total Bilirubin AST ALT Alkaline Phosphatase Total Protein Albumin Globulin Albumin/Globulin Ratio Urine Color Yellow Urine Clarity Clear Urine pH 6.0 Ur Specific [place] 1.020 Urine Protein Negative Urine Glucose (UA) Negative Urine Ketones Negative Urine Blood Negative Urine Nitrite Negative Urine Bilirubin Negative Urine Urobilinogen 0.2 Ur Leukocyte Esterase Negative Salicylate Level mg/dL Urine Opiates Screen Positive Ur Oxycodone Screen Negative Urine Methadone Screen Negative Ur Propoxyphene Screen Negative Acetaminophen Ur Barbiturates Screen Negative U Tricyclic Antidepress Negative Ur Phencyclidine Scrn Negative Ur Amphetamine Screen Positive U Methamphetamines Scrn Positive U Benzodiazepines Scrn Positive Urine Cocaine Screen Negative U Cannabinoids Screen Negative Plasma/Serum Alcohol 09/13/18 15:52 WBC RBC Hgb Hct MCV MCH MCHC RDW Coeff of Marquez Plt Count Immature Gran % (Auto) Neut % (Auto) Lymph % (Auto) [place] % (Auto) Eos % (Auto) Baso % (Auto) Immature Gran # (Auto) Neut # (Auto) Lymph # (Auto) [place] # (Auto) Eos # (Auto) Baso # (Auto) Sodium 139.5 Potassium 3.67 Chloride 106.2 Carbon Dioxide 24.7 Anion Gap 12.27 BUN 14.5 Creatinine 0.71 Estimated GFR (MDRD) 87.00 BUN/Creatinine Ratio 20.42 Glucose 103.9 Calcium 9.34 Total Bilirubin 0.54 AST 27.6 ALT 26.1 Alkaline Phosphatase 108.0 Total Protein 7.32 Albumin 4.26 Globulin 3.06 Albumin/Globulin Ratio 1.39 Urine Color Urine Clarity Urine pH Ur Specific [place] Urine Protein Urine Glucose (UA) Urine Ketones Urine Blood Urine Nitrite Urine Bilirubin Urine Urobilinogen Ur Leukocyte Esterase Salicylate Level mg/dL < 1.00 Urine Opiates Screen Ur Oxycodone Screen Urine Methadone Screen Ur Propoxyphene Screen Acetaminophen < 10.0 L Ur Barbiturates Screen U Tricyclic Antidepress Ur Phencyclidine Scrn Ur Amphetamine Screen U Methamphetamines Scrn U Benzodiazepines Scrn Urine Cocaine Screen U Cannabinoids Screen Plasma/Serum Alcohol < 10.0 Orders Category Date Time Status EKG-(ED ONLY) Stat CARDIO 09/13/18 15:45 Completed ACETAMINOPHEN Stat LAB 09/13/18 15:52 Completed BLOOD ALCOHOL Stat LAB 09/13/18 15:52 Completed CBC W/ AUTO DIFF Stat LAB 09/13/18 15:52 Completed COMPREHENSIVE METABOLIC PANEL Stat LAB 09/13/18 15:52 Completed DRUG SCREEN, URINE, RAPID Stat LAB 09/13/18 15:42 Completed SALICYLATE Stat LAB 09/13/18 15:52 Completed URINALYSIS C & S IF INDICATED Stat LAB 09/13/18 15:42 Completed Diphenhydramine HCl [Benadryl] MEDS 09/13/18 19:59 Discontinued 50 mg PO ONCE STA Ketorolac Tromethamine [Toradol] MEDS 09/13/18 17:29 Discontinued 30 mg IM ONCE STA CT HEAD W/O CONTRAST Stat RADS 09/13/18 17:32 Completed Medications Discontinued Medications Generic Name Dose Route Start Last Admin Trade Name Freq PRN Reason Stop Dose Admin Diphenhydramine HCl 50 mg 09/13/18 19:59 09/13/18 20:07 Benadryl PO 09/13/18 20:00 50 mg ONCE STA Administration Ketorolac Tromethamine 30 mg 09/13/18 17:29 09/13/18 17:47 Toradol IM 09/13/18 17:30 30 mg ONCE STA Administration Vital Signs: Temp Pulse Resp BP Pulse Ox 09/13/18 17:18 152/84 H 09/13/18 15:26 97.9 F 90 20 163/103 H 97 Departure - Departure Time of Disposition: 19:00 Disposition: HOME SELF-CARE Discharge Problem: Depression Instructions: Abuse of Alcohol (ED), Methamphetamine Abuse (ED), Polysubstance Abuse (ED) Condition: Fair Pt referred to PMD for follow-up: Yes IPMP verified?: No Additional Instructions: follow up up as discussed with mental health Allergies/Adverse Reactions: Allergies ondansetron HCl [From Zofran (as hydrochloride)] Adverse Reaction (Verified 15:30) Home Medications: Ambulatory Orders Benztropine Mesylate [Cogentin] 1 mg PO BID 06/24/18 Haloperidol [Haldol] 0.5 mg PO TID 06/24/18 Olanzapine [Zyprexa] 10 mg PO DAILY 06/24/18 Hydroxyzine Pamoate [Vistaril] 25 mg PO QID 09/13/18 Zolpidem Tartrate [Ambien] 10 mg PO BEDTIME 09/13/18
--- NOTE | 2018-09-13 18:13 | CT ---
EXAM: CT of the head without contrast History: Headache and head trauma. Comparison: Head CT 12/21/2015 Technique: Multiplanar CT images through the head were obtained without the administration of IV con trast Findings: The visualized paranasal sinuses and mastoid air cells are clear in general. No acute joelle varial abnormalities. Intracranially the ventricular and cisternal spaces are normal in size, shape and configuration for a patient of this age. No dominant mass or midline shift. No hydrocephalous. No acute intracranial hemorrhage or abnormal extraaxial fluid collections. Impression: No acute intracranial process
[2018-09-13] MEDS ORDERED: BENADRYL PO STA (19:59)
== END 2018-09-13 20:45 | disposition home or self-care (01) ==
LOC: ED 15:25
DX: F32.9 Major depressive disorder, single episode, unspecified (principal); Z91.14 Patient's other noncompliance with medication regimen; F15.10 Other stimulant abuse, uncomplicated; F19.10 Other psychoactive substance abuse, uncomplicated; R44.0 Auditory hallucinations; F17.210 Nicotine dependence, cigarettes, uncomplicated; Z79.899 Other long term (current) drug therapy; Z59.0 Homelessness
CPT/HCPCS: 36415; 80053; 80306; 80307; 81001; 85025; 93005; 93010; 96372; 99283

== ENCOUNTER 2018-10-16 16:08 | Outpatient (CLI) | END 2018-10-16 16:09 | disposition home or self-care (01) | LOC: RHC-LAB 16:08 | PROVIDERS: ATTEND Nurse Practitioner Family | DX: G43.909 Migraine, unspecified, not intractable, without status migrainosus (principal); Z72.0 Tobacco use | CPT/HCPCS: 36415; 80061; 84443 ==

== ENCOUNTER 2019-07-30 11:41 | Observation (INO) ==
[2019-07-30] MEDS ORDERED: SODIUM CHLORIDE 1,000 ML IV STA (12:03)
[2019-07-30] MEDS ORDERED: TYLENOL PO PRN (12:03)
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
[2019-07-30 12:43] LABS: HEMATOCRIT 39.5 % (37.0-47.0)
[2019-07-30] MEDS ORDERED: ZOFRAN 4 MG/2 ML IVP STA (13:27)
[2019-07-30] MEDS ORDERED: VISTARIL INJ IM STA (13:27)
[2019-07-30] MEDS ORDERED: PEPCID IVP STA (14:26)
[2019-07-30] MEDS ORDERED: THIAMINE 100 MG in SODIUM CHLORIDE 50 ML IV STA (14:30)
[2019-07-30] MEDS ORDERED: COZAAR PO ONE (14:34)
[2019-07-30 14:57] VITALS: BMI 29.3
[2019-07-30] MEDS ORDERED: FOLIC ACID 1 MG in SODIUM CHLORIDE 50 ML IV SCH (15:00)
[2019-07-30] MEDS ORDERED: THIAMINE 100 MG in SODIUM CHLORIDE 50 ML IV SCH (15:00)
[2019-07-30] MEDS: INFUVITE ADULT 10 ML in SODIUM CHLORIDE 0.9%-KCL 20 MEQ 1,000 ML IV SCH (15:37)
[2019-07-30] MEDS: ATARAX PO SCH ×2 (15:38→20:12)
[2019-07-30] MEDS: LOVENOX SUBCUT SCH (15:38)
[2019-07-30] MEDS: DEPAKOTE PO SCH ×2 (15:38→20:12)
[2019-07-30] MEDS ORDERED: PHENERGAN 25 MG/ML VIAL ONE ×2 (16:41→22:44)
[2019-07-30] MEDS: PHENERGAN 25 MG/ML VIAL 25 MG in SODIUM CHLORIDE 100 ML IV PRN ×2 (16:51→22:50)
[2019-07-30] MEDS: ATIVAN IVP PRN ×2 (16:52→22:51)
[2019-07-30] MEDS ORDERED: NICODERM 21 MG TD SCH (17:00)
[2019-07-30] MEDS ORDERED: ZYPREXA PO SCH (21:00)
[2019-07-31] MEDS: INFUVITE ADULT 10 ML in SODIUM CHLORIDE 0.9%-KCL 20 MEQ 1,000 ML IV SCH ×2 (01:47→01:55)
[2019-07-31] MEDS: INFUVITE ADULT IV ONE ×2 (01:48→01:49)
[2019-07-31] MEDS ORDERED: PHENERGAN 25 MG/ML VIAL ONE (04:33)
[2019-07-31] MEDS: PHENERGAN 25 MG/ML VIAL 25 MG in SODIUM CHLORIDE 100 ML IV PRN (04:36)
[2019-07-31] MEDS: ATIVAN IVP PRN (04:38)
[2019-07-31 05:21] VITALS: BP 160/90; TEMP 98.9
[2019-07-31 05:42] LABS: HEMATOCRIT 36.7 % (37.0-47.0)
[2019-07-31] MEDS: DEPAKOTE PO SCH (08:42)
[2019-07-31] MEDS: LOVENOX SUBCUT SCH (08:42)
[2019-07-31] MEDS: ATARAX PO SCH (08:42)
--- NOTE | 2019-07-31 08:42 | PCM.PROG ---
S: Patient was admitted as inpatient from ED yesterday for detox with EtOH of 262.4. My understanding is that at some point the Admission status was changed to an Observation stay. My instructions on shift change were to discharge her home. She drinks a fifth of liquor daily, and says she wants to quit. She was in despair in the ED, saying the alcohol was killing her. She denies s uicidal/homicidal ideation, but has a Psych history and is on Zyprexa. She has been getting her refills of Zyprexa through the ED for several months. She has not followed-up with a PCP in over a year, though she had been advised to do so at every ED visit. On 02/08/19 she was transferred to [facility] for alcoholism treatment. As was mentioned, she reports sincerely wanting to stop abusing alcohol, and would like treatment. I am aware of the recidivism rate for EtOH abuse, but am also aware of the potential lethality of unsupervised withdrawal of persons with this degree of EtOH intake. I would like to see her transfer to a treatment facility for medically supervised detox, followed by inpatient treatment. If this is not possible, I believe she would be best served by doing the detox here, followed by transfer to a treatment facility. I contacted [facility], but they are on a wait list and will not have space within the week. Nursing is trying to place her. O: Patient is stable and coherent on exam. She continues to have some mild tachycardia and hypertension, as well as 'the shakes'. She expresses a desire to have a medically supervised detox, followed by inpatient treatment. BP - 160/90 Pulse 101 Resp - 18 Temp - 98.9 O2 Sat - 99%RA HEENT - NCAT, PEERLA, EOMI CV - RRR Pulm - CTA bilaterally, though somewhat diminished Abd/GI - Soft, NT, NABS Psych - Patient desires treatment for EtOH addiction Neuro - Intact, with tremors noted A: Patient is hemodynamically stable with Benzos being administered to mitigate the effects of EtOH withdrawal. She has the physical s/s of EtOH dependency in withdrawal, that being hypertension, tachycardia, and 'the shakes'. P: Patient is willing to transfer to an inpatient treatment facility. Nursing is trying to arrange transfer. If possible, they will apple picking supervisor the medically supervised withdrawal, followed by inpatient treatment. If a facility is found that will accept her for both the rehab and detox, I will transfer her today. If they are only able to do psych/rehab treatment, we can change her status back to a full admit and continue to facilitate the medical withdrawal, with transfer to the rehab facility in a few days. I would anticipate transfer on Saturday. If there is no facility to transfer her to, I will discharge her today. Continue current care.
[2019-07-31] MEDS ORDERED: COZAAR PO SCH (09:00)
--- NOTE | 2019-07-31 10:08 | PCM.DC ---
Final Diagnosis: Acute Alcohol Intoxication Reason for Hospitalization: Patient was admitted through the ED for acute alcohol intoxication. Her admission was changed to an Observation stay. When seen this morning, she expressed interest in transfer to a treatment facility. Nursing was trying to find a facility for her, but she must have changed her mind. I was back in the ED when I received a call from Nursing saying she had gone AMA. My understanding is that she needed to sign her check, and wanted to go out to smoke. When she was told that she couldn't come in and out of the facility, she decided to go AMA. Patient had left the facility by the time I made it to the floor, minutes after the call. Prognosis at Discharge: She will almost certainly relapse. She was medically stable on discharge, but would require administration of benzos to avoid seizure activity/possible mortality. Condition at Discharge: Stable Medications at Discharge: Ambulatory Orders Medication Instructions Recorded olanzapine [Zyprexa] 20 mg PO BEDTIME #30 tab 06/02/19 divalproex [Depakote] 250 mg PO DAILY 06/30/19 Patient went AMA. No prescriptions were written. Patient was counseled to establish care with a PCP. She expressed understanding that refills of her psych meds through the ED was inappropriate. Lab/Diagnostics: none new Education Provided to Patient and Family: Patient was advised to follow-up with a PCP and Psych. Inpatient detox/rehab was advised. Follow-ups: Recommended establishing care with a PCP and Psych. Also recommended she seek inpatient EtOH treatment. Discharge Disposition: AMA Hospital Course: Patient was admitted for EtOH abuse. Her level was >200 when seen in the ED. She expressed a desire to quit drinking, saying alcohol abuse was killing her. She was given IVF, Niacin/Folate, and Ativan overnight, after which she clinically normalized. She expressed a desire to transfer to a treatment facility when seen earlier today, but instead decided to go AMA. She was hemodynamically stable on leaving this facility. Plan: Patient left AMA prior to my seeing her again. I have no doubt she will be seen again in the ED for the same complaint.
[2019-07-31] MEDS ORDERED: NICODERM 21 MG TD SCH (17:00)
== END 2019-07-31 09:50 | disposition left against medical advice (07) ==
LOC: ED 11:41 → INTOOBSV 14:28 → MEDSURG B 14:28
PROVIDERS: ADMIT Family Medicine Addiction Medicine; ATTEND Family Medicine Addiction Medicine
DX: F10.229 Alcohol dependence with intoxication, unspecified; F32.9 Major depressive disorder, single episode, unspecified; F17.210 Nicotine dependence, cigarettes, uncomplicated; R00.0 Tachycardia, unspecified; F20.9 Schizophrenia, unspecified; R41.82 Altered mental status, unspecified; Z79.899 Other long term (current) drug therapy; I10 Essential (primary) hypertension; F41.9 Anxiety disorder, unspecified; R25.9 Unspecified abnormal involuntary movements